=== PATIENT | female | born 1965 | race Caucasian/White ===

== ENCOUNTER → 2019-11-09 | Outpatient (CLI) | payer OTHER ==
[~2019-11-09] MED LIST: AMBIEN 5MG TABLE5 MG PO; CELEXA 20MG20 MG/TAB PO; NEXIUM 20MG CAP20 MG PO
== END ==
LOC: COL.RAD 07:39
DX: R10.13 Epigastric pain (principal)
CPT/HCPCS: Q9967

== ENCOUNTER → 2019-12-05 | Outpatient (CLI) | payer OTHER | LOC: COL.RAD 07:34 | DX: K21.9 Gastro-esophageal reflux disease without esophagitis (principal) ==

== ENCOUNTER → 2019-12-13 | Outpatient (CLI) | payer OTHER | LOC: COL.RAD 07:08 | DX: R68.81 Early satiety (principal) | CPT/HCPCS: A9541 ==